=== PATIENT | male | born 2000 | race Caucasian/White ===

== ENCOUNTER → 2025-01-05 17:23 | Outpatient (REF) | payer OTHER, SELFPAY | LOC: RCS 17:23 | PROVIDERS: ATTENDING PHYSICIAN Internal Medicine | DX: Q25.47 Right aortic arch (principal) | CPT/HCPCS: 93306 ==

== ENCOUNTER → 2025-03-21 12:00 | Outpatient (REF) | payer OTHER, SELFPAY | LOC: DHSLP 12:00 | PROVIDERS: ATTENDING PHYSICIAN Registered Nurse | DX: G47.30 Sleep apnea, unspecified (principal); R06.83 Snoring | CPT/HCPCS: 95800 ==

== ENCOUNTER → 2025-04-11 18:32 | Outpatient (REF) | payer OTHER, SELFPAY | LOC: MRI 18:32 | PROVIDERS: ATTENDING PHYSICIAN Registered Nurse | DX: Q25.47 Right aortic arch (principal); Q27.8 Other specified congenital malformations of peripheral vascular system | CPT/HCPCS: 71552; A9585 ==

== ENCOUNTER → 2025-04-13 20:18 | Outpatient (REF) | payer OTHER, SELFPAY | LOC: MRI 20:18 | PROVIDERS: ATTENDING PHYSICIAN Registered Nurse | DX: Q25.47 Right aortic arch (principal); Q27.8 Other specified congenital malformations of peripheral vascular system | CPT/HCPCS: 70549; A9585 ==

== ENCOUNTER → 2025-07-11 07:49 | Outpatient (REF) | payer OTHER, SELFPAY | LOC: RAD 07:49 | PROVIDERS: ATTENDING PHYSICIAN Registered Nurse | DX: R79.89 Other specified abnormal findings of blood chemistry (principal) | CPT/HCPCS: 76700 ==

== ENCOUNTER → 2025-07-13 06:27 | Outpatient (REF) | payer OTHER, SELFPAY | LOC: RAD 06:27 | PROVIDERS: FAMILY PHYSICIAN Registered Nurse | DX: Q27.8 Other specified congenital malformations of peripheral vascular system (principal); Q25.47 Right aortic arch | CPT/HCPCS: 93880; 93923; 93930 ==

== ENCOUNTER → 2025-08-22 17:36 | Outpatient (REF) | payer OTHER, SELFPAY | LOC: MRI 3T 17:36 | PROVIDERS: ATTENDING PHYSICIAN Registered Nurse | DX: R47.89 Other speech disturbances (principal); R29.898 Other symptoms and signs involving the musculoskeletal system; Q27.8 Other specified congenital malformations of peripheral vascular system | CPT/HCPCS: 70553; A9575 ==

== ENCOUNTER → 2025-08-23 17:41 | Outpatient (REF) | payer OTHER, SELFPAY | LOC: MRI 3T 17:41 | PROVIDERS: ATTENDING PHYSICIAN Registered Nurse | DX: R47.89 Other speech disturbances (principal); R29.898 Other symptoms and signs involving the musculoskeletal system; Q27.8 Other specified congenital malformations of peripheral vascular system | CPT/HCPCS: 72156; A9575 ==